=== PATIENT | male | born 1955 | race Caucasian/White ===

== ENCOUNTER 2024-02-11 10:17 | Emergency (ER) | payer MEDICARE, MEDICAID ==
[2024-02-11] MEDS: Ketorolac 30 MG/ML SDV IM ONE (11:30)
[2024-02-11] MEDS: Cyclobenzaprine 10 MG Tab PO ONE (11:31)
[2024-02-11 13:43] VITALS: BP 138/79; PULSE 87
== END 2024-02-11 13:44 | disposition home or self-care (01) ==
LOC: JP.ED 10:17
DX: M62.830 Muscle spasm of back (principal); I10 Essential (primary) hypertension; J44.9 Chronic obstructive pulmonary disease, unspecified; Z79.82 Long term (current) use of aspirin; Z79.899 Other long term (current) drug therapy; Z87.891 Personal history of nicotine dependence
CPT/HCPCS: 96372; 99283; A9270-GY; J1885

== ENCOUNTER 2024-02-15 08:39 | Emergency (ER) | payer MEDICARE, MEDICAID ==
[2024-02-15 08:49] VITALS: BP 127/78; PULSE 109
== END 2024-02-15 09:13 | disposition home or self-care (01) ==
LOC: JP.ED 08:39
DX: M54.50 Low back pain, unspecified (principal); I10 Essential (primary) hypertension; J44.9 Chronic obstructive pulmonary disease, unspecified; Z87.891 Personal history of nicotine dependence; Z79.82 Long term (current) use of aspirin; Z79.899 Other long term (current) drug therapy
CPT/HCPCS: 99283

== ENCOUNTER 2024-02-18 19:33 | Emergency (ER) | payer MEDICARE, MEDICAID ==
[2024-02-18 19:57] VITALS: BP 138/88; PULSE 114
[2024-02-18 20:33] LABS: BASOPHILS ABSOLUTE AUTO 0.07 K/uL (0.00-0.10); BASOPHILS PERCENT AUTO 0.6 % (0.1-1.3); EOSINOPHILS ABSOLUTE AUTO 0.17 K/uL (0.00-0.40); EOSINOPHILS PERCENT AUTO 1.5 % (0.0-5.4); HEMATOCRIT 41.1 % (38.4-49.7); HEMOGLOBIN 14.5 g/dL (12.9-16.9); IMMATURE GRAN ABSOLUTE AUTO 0.19 K/uL (0.00-0.23); IMMATURE GRAN PERCENT AUTO 1.7 % (0.0-0.7); LYMPHOCYTES ABSOLUTE AUTO 0.88 K/uL (0.8-3.3); LYMPHOCYTES PERCENT AUTO 7.8 % (11.4-47.7); MEAN CORPUSCULAR HEMOGLOBIN 29.2 pg (31.6-35.5); MEAN CORPUSCULAR HGB CONC 35.3 g/dL (31.6-35.5); MEAN CORPUSCULAR VOLUME 82.9 fL (81.4-99.0); MONOCYTES ABSOLUTE AUTO 1.33 K/uL (0.20-0.90); MONOCYTES PERCENT AUTO 11.7 % (3.3-12.6); NEUTROPHILS PERCENT AUTO 76.7 % (40.0-78.1); PLATELET COUNT,PLT 402 K/uL (130-375); RED BLOOD CELL COUNT 4.96 M/uL (4.14-5.76); WHITE BLOOD CELL COUNT,WBC 11.3 K/uL (3.2-11.0)
[2024-02-18 20:55] LABS: A/G RATIO 0.6 (1.2-2.2); ALANINE AMINOTRANSFERASE,ALT 74 U/L (12-78); ALKALINE PHOSPHATASE 278 U/L (46-116); ANION GAP 14.3 mmol/L (5.0-14.0); ASPARTATE AMNIOTRANSFERASE,AST 97 U/L (15-37); BILIRUBIN TOTAL 0.6 mg/dL (0.2-1.0); BLOOD UREA NITROGEN,BUN 20 mg/dL (7-18); CALCIUM 11.9 mg/dL (8.5-10.1); CARBON DIOXIDE,CO2 28 mmol/L (21-32); CHLORIDE,CL 87 mmol/L (100-108); ESTIMATED GFR 83 mL/min (>60); GLUCOSE RANDOM 131 mg/dL (74-106); POTASSIUM,K 4.3 mmol/L (3.6-5.2); PROTEIN TOTAL,TP 8.1 g/dL (6.4-8.2); SODIUM,NA 125 mmol/L (140-148)
[2024-02-18] MEDS: Ketorolac 30 MG/ML SDV IM ONE (21:01)
[2024-02-18 21:04] LABS: C-REACTIVE PROTEIN 8.9 mg/dL (<0.50); PSA SCREEN 0.5 ug/L (0.0-4.0)
[2024-02-18] MEDS: Iopamidol 612 MG/ML 100 ML Bottle IV SCH (21:50)
[2024-02-18] MEDS: Sodium Chloride 0.9% 60 ML IV SCH (21:50)
== END 2024-02-18 23:44 | disposition home or self-care (01) ==
LOC: JP.ED 19:33
DX: S22.071A Stable burst fracture of T9-T10 vertebra, initial encounter for closed fracture (principal); E87.1 Hypo-osmolality and hyponatremia; C79.9 Secondary malignant neoplasm of unspecified site; I10 Essential (primary) hypertension; J44.9 Chronic obstructive pulmonary disease, unspecified; Z87.891 Personal history of nicotine dependence; Z79.899 Other long term (current) drug therapy; Z79.82 Long term (current) use of aspirin; X50.9XXA Other and unspecified overexertion or strenuous movements or postures, initial encounter
CPT/HCPCS: 36415; 71046; 74177; 80053; 85025; 86140; 93005; 93010; 96372; 99284; G0103; J1885; J3490; Q9967

== ENCOUNTER 2024-03-16 07:45 | Day surgery (SDC) | payer MEDICARE, MEDICAID ==
[2024-03-16] MEDS: Lactated Ringers 1,000 ML IV SCH (08:28)
[2024-03-16] MEDS ORDERED: fentaNYL 100 MCG/2 ML SDV ONE (08:52)
[2024-03-16] MEDS ORDERED: Propofol 200 MG/20 ML SDV ONE ×2 (08:52→10:25)
[2024-03-16] MEDS ORDERED: Midazolam 1 MG/ML 2 ML SDV ONE (08:52)
[2024-03-16] MEDS: ceFAZolin 2 GM in Premix Bag 1 BAG IV ONE (10:10)
[2024-03-16] MEDS: Lidocaine 1% with EPINEPHrine 1:100,000 50 ML MDV ONE (10:49)
[2024-03-16] MEDS: Bupivacaine 0.5% 50 ML MDV ONE (10:49)
[2024-03-16] MEDS: Scopalamine 1mg/3day Transdermal Patch TOP ONE (12:09)
[2024-03-16] MEDS: Acetaminophen/HYDROcodone 325-5 MG Tab PO ONE (12:10)
[2024-03-16 12:16] VITALS: BP 148/84; PULSE 81
== END 2024-03-16 12:32 | disposition home or self-care (01) ==
LOC: JP.SDS 07:45
PROVIDERS: ATTEND Surgery
DX: C34.11 Malignant neoplasm of upper lobe, right bronchus or lung (principal); J44.9 Chronic obstructive pulmonary disease, unspecified
CPT/HCPCS: 36561; 71045; 76000; A9270; C1788; C1894; J0665; J0690; J1642; J2250; J2704; J3010; J7120; 00532-QZ